=== PATIENT | male | born 1980 ===

== ENCOUNTER 2016-09-06 11:14 | Emergency (ER) | payer OTHER ==
[~2016-09-06] VITALS: Ht 172.7 cm; Wt 85.0 kg
[2016-09-06 11:17] VITALS: Ht 172.7 cm; Wt 85.0 kg
[2016-09-06] MEDS ORDERED: CEFTRIAXONE SOD INJ 1 GM ADDVIAL IV STA (11:43)
[2016-09-06] MEDS ORDERED: CLIN1CAP51 PO (11:59)
[2016-09-06] MEDS ORDERED: OPTIRAY 320 IV PRN (12:00)
[2016-09-06 12:08] LABS: BASO % 0.3 %; BASO ABS # 0.03 K/uL (0-0.2); COMPLETE YES; EOS % 0.7 %; HEMATOCRIT 40.6 % (42-52); IG% 0.3 %; LYMPH % 14.3 %; MEAN CELL VOLUME 86.2 fL (80-100); MEAN CORPUSCULAR HEMOGLOBIN 29.9 pg (25-34); MEAN CORPUSCULAR HGB CONC 34.7 g/dl (32-36); MEAN PLATELET VOLUME 8.8 fL (7.4-10.4); MONO % 7.2 %; NEUT % 77.2 %; PLATELET COUNT 226 K/uL (130-400); RED BLOOD COUNT 4.71 M/uL (4.7-6.1)
[2016-09-06 12:24] LABS: BUN/CREATININE RATIO 6.9 (10-20); CALCIUM 8.6 mg/dl (8.5-10.1); CREATININE 1.4 mg/dl (0.60-1.40); POTASSIUM 4.3 mmol/L (3.5-5.1)
--- NOTE | 2016-09-06 12:36 | EMERGENCY ROOM VISIT NOTE ---
History First contact with patient: 11:30 Chief Complaint: OTHER COMPLAINT Stated Complaint: L BUTTOCK AREA History of Present Illness The patient is a 35 year old male who presents to the Emergency Room with complaints of a cyst of his left buttock area. The patient reports that he has had swelling of the left buttock for the past one week. He was seen at the [facility] and was prescribed Bactrim 3 days ago. He states that yesterday, he was switched to clindamycin. He was sent here today for worsening swelling and pain. He reports a history of pilonidal cyst which was removed in February of last year. He denies any history of perirectal abscess. He denies any fevers/chills. He rates his discomfort a 10/10. Review of Systems A complete 10-point Review of Systems was discussed with the patient, with pertinent positives and negatives listed in the History of Present Illness. All remaining Review of Systems questions can be considered negative unless otherwise specified. Social History Smoking Status: Former Smoker Current/Historical Medications Scheduled Clindamycin HCl (Clindamycin HCl), 4 CAP PO TID Allergies Coded Allergies: No Known Allergies (Unverified , 09/06/16) Physical Exam Vital Signs Date Time Temp Pulse Resp B/P Pulse Ox O2 Delivery O2 Flow Rate FiO2 09/06/16 15:01 51 151/80 99 Room Air 09/06/16 14:59 37.0 55 18 106/69 96 09/06/16 13:38 55 18 106/69 96 Room Air 09/06/16 11:17 37.0 93 16 143/83 98 Room Air Physical Exam VITALS: Vitals are noted on the nurse's note and reviewed by myself. Vital signs stable. GENERAL: This is a 35-year-old male, in no acute distress, nondiaphoretic, well- developed well-nourished. HEART: Regular rate and rhythm without murmurs gallops or rubs. LUNGS: Clear to auscultation bilaterally without wheezes, rales or rhonchi. ABDOMEN: Soft, nontender. SKIN: There is a large area of induration and tenderness over the left perirectal region. There is central fluctuance which measures approximately 4 cm in diameter. NEURO: Patient was alert and oriented to person place and time. Medical Decision & Procedures ER Provider Diagnostic Interpretation: CT SCAN OF THE PELVIS WITH IV CONTRAST IMPRESSION: 1. Findings are consistent with cellulitis of the posteromedial left buttock with an approximately 3 x 5 x 3 cm abscess within the subcutaneous fat just deep to the median gluteal crease. 2. The perianal soft tissues are within normal limits. There is no perianal abscess or fistula identified. 3. The pelvic viscera is normal as imaged. 4. Mildly enlarged left pelvic sidewall lymph nodes are likely on a reactive basis. Laboratory Results 09/06/16 11:52 Red Blood Count 4.71, Mean Corpuscular Volume 86.2, Mean Corpuscular Hemoglobin 29.9, Mean Corpuscular Hemoglobin Concent 34.7, Mean Platelet Volume 8.8, Neutrophils (%) (Auto) 77.2, Lymphocytes (%) (Auto) 14.3, Monocytes (%) (Auto) 7.2, Eosinophils (%) (Auto) 0.7, Basophils (%) (Auto) 0.3, Neutrophils # (Auto) 9.20, Lymphocytes # (Auto) 1.70, Monocytes # (Auto) 0.86, Eosinophils # (Auto) 0.08, Basophils # (Auto) 0.03 09/06/16 11:52 Test 09/06/16 11:52 White Blood Count 11.90 K/uL (4.8-10.8) Red Blood Count 4.71 M/uL (4.7-6.1) Hemoglobin 14.1 g/dL (14.0-18.0) Hematocrit 40.6 % (42-52) Mean Corpuscular Volume 86.2 fL (80-100) Mean Corpuscular Hemoglobin 29.9 pg (25-34) Mean Corpuscular Hemoglobin Concent 34.7 g/dl (32-36) Platelet Count 226 K/uL (130-400) Mean Platelet Volume 8.8 fL (7.4-10.4) Neutrophils (%) (Auto) 77.2 % Lymphocytes (%) (Auto) 14.3 % Monocytes (%) (Auto) 7.2 % Eosinophils (%) (Auto) 0.7 % Basophils (%) (Auto) 0.3 % Neutrophils # (Auto) 9.20 K/uL (1.4-6.5) Lymphocytes # (Auto) 1.70 K/uL (1.2-3.4) Monocytes # (Auto) 0.86 K/uL (0.11-0.59) Eosinophils # (Auto) 0.08 K/uL (0-0.5) Basophils # (Auto) 0.03 K/uL (0-0.2) RDW Standard Deviation 42.2 fL (36.4-46.3) RDW Coefficient of Variation 13.2 % (11.5-14.5) Immature Granulocyte % (Auto) 0.3 % Immature Granulocyte # (Auto) 0.03 K/uL (0.00-0.02) Anion Gap 9.0 mmol/L (3-11) Est Creatinine Clear Calc Drug Dose 77.4 ml/min Estimated GFR () 74.4 Estimated GFR (Non- 64.2 BUN/Creatinine Ratio 6.9 (10-20) Calcium Level 8.6 mg/dl (8.5-10.1) Medications Administered Medications (Trade) Dose Ordered Sig/Andres Route Start Time Stop Time Status Last Admin Dose Admin Ceftriaxone Sodium (Rocephin Inj) 1 gm NOW STAT IV 09/06/16 11:43 09/06/16 11:44 DC 09/06/16 11:43 1 GM Morphine Sulfate (MoRPHine SULFATE INJ) 6 mg NOW STAT IV 09/06/16 13:34 09/06/16 13:35 DC 09/06/16 13:41 6 MG Lidocaine/ Epinephrine (Xylocaine/Epine 1% Inj) 20 ml ONE ONCE INFIL 09/06/16 13:45 09/06/16 13:46 DC 09/06/16 13:45 20 ML Procedure I examined the patient. Verbal consent was obtained to perform the procedure. After saline and Betadine cleansing and 8 mL of 1% buffered lidocaine with epinephrine anesthesia, the abscess was incised with a number 11 scalpel blade. A large amount of purulent material was released with more expressed by pressure. A swab was obtained for culture. The abscess cavity was further probed with a needle electric pile driver operator and the deep pocket expressed. The abscess cavity was then copiously irrigated with sterile saline under pressure. The area was then packed with bacitracin soaked packing. The area was cleaned with sterile saline and dressed with bacitracin and a bulky bandage. The patient tolerated the procedure well. No complications were met. Medical Decision Differential diagnosis includes perirectal abscess, gluteal abscess, cellulitis , among others. The patient was evaluated as above. Labs were drawn and IV access was obtained. Imaging studies were performed and read by radiology as above. The patient was medicated with 1 g Rocephin and 6 mg morphine for pain. The patient was reassessed multiple times during their stay in the emergency department and remained in stable condition. The patient is a 35-year-old male who presents today complaining of of swelling of the left gluteal area. Labs revealed a mild leukocytosis consistent with infection. CT scan of the pelvis was performed to differentiate between gluteal and perirectal abscess. This showed a gluteal abscess with no involvement of the perirectal/perianal region. Incision and drainage was performed by myself as noted above. Packing was placed which will be removed by the [facility]. The patient was given 1 g Rocephin. He will follow-up at the [facility] on his return. He was instructed to follow-up with a general surgeon as needed. Based on the patient's presentation, lab results, and imaging studies, I feel the patient is stable for outpatient treatment. Discharge instructions were reviewed with the patient. The patient verbalized understanding of my assessment and treatment plan and was discharged home in good condition. Impression Primary Impression: Abscess, gluteal, left Departure Information Dispostion Home / Self-Care Condition GOOD Referrals Bry BUCIO (PCP) Patient Instructions My [facility] Additional Instructions You were seen in the Emergency Department for Incision and Drainage of your buttock abscess. Packing should be removed or changed in 48-72 hours. Continue the clindamycin as prescribed. You were given a dose of Rocephin in the emergency department. Proper wound care is essential for adequate wound healing and infection prevention. You can shower and clean the wound with soap and water. Do not scour over the wound. Pat dry with a towel. Do not submerse the wound (i.e. bathe or dish wash) until the sutures have been removed. You can use an antibiotic ointment with a dressing over the wound for the next 3-4 days. After this time you may leave the wound dry and open to the air. If crust develops over the wound you can use a Q-tip to apply a 1:1 peroxide:water solution to clean the wound. Look for signs of infection of the wound including: increased pain, swelling, foul discharge, streaking, or increased temperature. If any of these are noticed you should return to the Emergency Department for further assessment and treatment. As with any laceration you may have received nerve damage to the surrounding tissues. This damage may or may not be permanent. For pain control, you can use the following cesx-icf-yrvnqwa medicines (if >12 yo): - Regular strength (325mg/tab) Tylenol (acetaminophen) 2 tabs every 4-6 hours as needed. Do not exceed 12 tablets in a 24 hour period. Avoid taking more than 4 grams (4000 mg) of Tylenol per day. This includes any other sources of acetaminophen you may take on a regular basis. - Regular strength (200 mg/tab) Advil (ibuprofen) 1-2 tabs every 4-6 hours as needed. Do not exceed a dose of 3200 mg per day. Return to the emergency department if your symptoms worsen despite treatment course outlined above.
[2016-09-06] MEDS ORDERED: MoRPHine SULFATE 10 MG/ML CARP/VIAL IV STA (13:34)
--- NOTE | 2016-09-06 13:41 | DIAGNOSTIC IMAGING REPORT ---
CT SCAN OF THE PELVIS WITH IV CONTRAST CLINICAL HISTORY: Perianal abscess. COMPARISON STUDY: No priors. TECHNIQUE: Following the IV administration of 119 cc of Optiray 320, CT scan of the pelvis is performed from the pelvic inlet to the proximal femora. Images reviewed in the axial, sagittal, and coronal planes. IV contrast was administered without complication. CT DOSE: 454.90 mGy.cm FINDINGS: The perianal soft tissues are normal in appearance. The visualized rectosigmoid colon and small bowel loops in the pelvis are normal. A normal appendix is identified. The bladder, prostate, and seminal vesicles are within normal limits. There is significant soft tissue induration with associated dermal thickening seen in the left buttock. This is consistent with cellulitis. There is an approximately 3 x 5 x 3 cm complex fluid collection seen in the posteromedial left buttock along the left median gluteal crease consistent with an abscess. There is no evidence of fistula. There is no inguinal lymphadenopathy. Mildly enlarged left pelvic sidewall lymph nodes measure up to 11 mm in short axis and are likely on a reactive basis. A fat-containing umbilical hernia is noted. The bony pelvis is intact. No lytic or blastic lesions are identified. Tiny calcifications or metallic foreign bodies are incidentally noted within the right hamstrings musculature on image #[id number]. IMPRESSION: 1. Findings are consistent with cellulitis of the posteromedial left buttock with an approximately 3 x 5 x 3 cm abscess within the subcutaneous fat just deep to the median gluteal crease. 2. The perianal soft tissues are within normal limits. There is no perianal abscess or fistula identified. 3. The pelvic viscera is normal as imaged. 4. Mildly enlarged left pelvic sidewall lymph nodes are likely on a reactive basis. Electronically signed by: Fabrizio Jose M.D. 09/06/2016 1:40 PM Dictated Date/Time: 09/06/2016 1:33 PM
[2016-09-06] MEDS ORDERED: LIDOCAINE/EPINEPHRINE 1% 20 ML VIAL INFIL ONE (13:45)
[2016-09-06 14:59] VITALS: TEMP 37
[2016-09-06 15:01] VITALS: BP 151/80; PULSE 51; O2SAT 99
== END 2016-09-06 15:00 | disposition home or self-care (01) ==
LOC: C.EDB 11:15 → C.EDA 15:00
DX: L02.31 Cutaneous abscess of buttock (principal); Z87.891 Personal history of nicotine dependence